=== PATIENT | female | born 1975 | race African-American/Black ===

== ENCOUNTER → 2017-07-26 | Outpatient (CLI) | payer OTHER ==
[~2017-07-26] VITALS: Ht 160 cm; Wt 49.9 kg
[~2017-07-26] MED LIST: MIRALAX255 GM PO; NOHOMEMEDS; POLYETHYLENE G255 GM; SENNA PLUS TAB1 EACH PO
== END | disposition home or self-care (01) ==
LOC: AMB 08:27
PROC: 0DJD8ZZ Inspection of Lower Intestinal Tract, Via Natural or Artificial Opening Endoscopic (ICD-10-PCS; principal; 2017-07-26)
DX: K59.09 Other constipation (principal); K64.8 Other hemorrhoids; K62.5 Hemorrhage of anus and rectum; H91.90 Unspecified hearing loss, unspecified ear; J45.909 Unspecified asthma, uncomplicated; Z89.9 Acquired absence of limb, unspecified; Z80.1 Family history of malignant neoplasm of trachea, bronchus and lung
CPT/HCPCS: J2250; J3010